=== PATIENT | female | born 1950 | race American Indian/Alaskan Native ===

== ENCOUNTER 2021-04-07 09:57 | Day surgery (SDC) | payer OTHER ==
[~2021-04-07 09:57] MED LIST: Acetaminophen 325 MG Tab PO PRN; Acetaminophen/Codeine 300-30 MG Tab PO PRN; Cataract Ophth Solution EYELF ONE; Moxifloxacin 0.5% Ophth Soln 3 ML Bottle EYELF ONE; Ondansetron 4 MG/2 ML SDV IVPUSH PRN; Phenylephrine 10% Ophth Soln 5 ML Bot EYELF ONE; Povidone-Iodine 5% Sterile Ophth Soln 30 ML Bottle EYELF ONE; Proparacaine 0.5% Ophth Soln 15 ML Bottle EYELF ONE; Sodium Chloride 0.9% 10 ML Syringe FLUSH PRN; Timolol Maleate 0.5% Ophth Soln 5 ML Bottle EYELF ONE; Tropicamide 1% Ophth Soln 15 ML Bottle EYELF ONE
[2021-04-07] MEDS ORDERED: Sodium Chloride 0.9% 10 ML Syringe IV ONE (09:58)
[2021-04-07] MEDS ORDERED: Dexamethasone 4 MG/ML SDV IV ONE (09:58)
[2021-04-07] MEDS ORDERED: Midazolam 1 MG/ML 2 ML SDV IV ONE (09:58)
[2021-04-07] MEDS ORDERED: Tetracaine HCl/PF 0.5% 4 ML Bottle EYELF ONE (11:08)
[2021-04-07] MEDS ORDERED: Apraclonidine 0.5% Ophth Soln 5 ML Bot EYELF ONE (11:08)
[2021-04-07] MEDS ORDERED: Povidone-Iodine 5% Sterile Ophth Soln 30 ML Bottle EYELF ONE (11:08)
[2021-04-07] MEDS ORDERED: Diclofenac Sodium 0.1% Ophth Soln 5 ML Bottle EYELF ONE (11:08)
[2021-04-07] MEDS ORDERED: Dexamethasone/Neomycin/Polymyxin B Ophth Oint 3.5 GM Tube EYELF ONE (11:09)
[2021-04-07] MEDS ORDERED: Chondroitin Sulfate/Hyaluronate Sodium Ophth Inj 0.75 ML Syringe EYELF ONE (11:09)
[2021-04-07] MEDS ORDERED: Balanced Salt Solution Ophth Irrig 500 ML Bottle IOCULAR ONE (11:09)
[2021-04-07] MEDS ORDERED: Vancomycin 500 MG SDV ONE (11:09)
[2021-04-07] MEDS ORDERED: Lidocaine 1% 30 ML SDV ONE (11:10)
--- NOTE | 2021-04-09 08:21 | OR ---
DATE: 04/07/2021 PREOPERATIVE DIAGNOSIS: Visually significant mixed cataract, left eye. POSTOPERATIVE DIAGNOSIS: Visually significant mixed cataract, left eye. PROCEDURE: Extracapsular cataract extraction with intraocular lens implant, left eye. ANESTHESIA: Topical/local MAC. COMPLICATIONS: None. INDICATION: The patient was seen in the clinic with complaints of blurred vision. 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 Visual needs were not met with an updated refraction. The patient was symptomatic with multiple complaints impacting activities of daily living. Explained options, offered cataract surgery for the left eye. Explained risks, including, but not limited to, infection, retinal detachment, loss of vision, need for additional surgery, and risks associated with anesthesia, amongst others. We discussed implant options. The patient requested a monofocal implant. OPERATIVE DESCRIPTION: After informed consent was obtained and the risks, benefits, and alternatives were explained, the patient was brought to the operative suite and topical anesthesia was administered. The patient was then prepped and draped in the sterile fashion and attention was placed on the left eye. A sterile lid speculum was placed into the left eye to allow operative exposure. A full-thickness paracentesis was made in the temporal portion of the operative eye. Preservative-free lidocaine 0.1 mL was injected into the anterior chamber followed by viscoelastic. A full-thickness corneal incision was then made into the anterior chamber. A bent needle cystotome was used to create a small vanessa in the anterior capsule. The capsulorrhexis forceps was then used to create a 360-degree curvilinear capsulorrhexis. The nucleus was then removed using a phacoemulsification handpiece and the remaining cortical material was then removed with irrigation and aspiration handpiece. Following removal of the cortical material, the capsular bag was then inspected and noted to be free of any holes or tears. Viscoelastic was then injected into the capsular bag and the intraocular lens was inserted into the capsular bag. The viscoelastic material was then removed from both the anterior and posterior chambers and from behind the IOL. The lens and capsular bag were then reinspected. The IOL was well centered and the capsular bag intact. The wound and paracentesis sites were inspected and hydrated with balanced saline solution. Both were found to be self- sealing. The intraocular pressure was assessed digitally and found to be within normal range. A good red reflex was noted at the completion of the procedure. No complications occurred during the operation. At the completion of the procedure, Maxitrol, Voltaren, and Iopidine drops were placed into the operative eye. A sterile eye shield was placed over the operative eye and the patient was transported to the postoperative recovery area having tolerated the procedure well. Postoperative instructions were given along with a postoperative appointment. The patient was advised to call with any questions or concerns. [facility] /[id number]
== END 2021-04-07 12:00 | disposition home or self-care (01) ==
LOC: DL.SDS 09:57
PROVIDERS: ATTEND Ophthalmology
DX: E11.36 Type 2 diabetes mellitus with diabetic cataract (principal); H26.8 Other specified cataract; E78.5 Hyperlipidemia, unspecified; D50.9 Iron deficiency anemia, unspecified; F17.210 Nicotine dependence, cigarettes, uncomplicated; I65.21 Occlusion and stenosis of right carotid artery; J44.9 Chronic obstructive pulmonary disease, unspecified
CPT/HCPCS: 66984; 82947; A9270; J1100; J2250; J3370; V2632

== ENCOUNTER 2021-05-26 09:16 | Day surgery (SDC) | payer OTHER ==
[~2021-05-26 09:16] MED LIST changes: -Cataract Ophth Solution EYELF ONE; -Moxifloxacin 0.5% Ophth Soln 3 ML Bottle EYELF ONE; -Phenylephrine 10% Ophth Soln 5 ML Bot EYELF ONE; -Povidone-Iodine 5% Sterile Ophth Soln 30 ML Bottle EYELF ONE; -Proparacaine 0.5% Ophth Soln 15 ML Bottle EYELF ONE; -Sodium Chloride 0.9% 10 ML Syringe FLUSH PRN; -Timolol Maleate 0.5% Ophth Soln 5 ML Bottle EYELF ONE; -Tropicamide 1% Ophth Soln 15 ML Bottle EYELF ONE
[2021-05-26] MEDS ORDERED: Sodium Chloride 0.9% 10 ML Syringe IV ONE (09:17)
[2021-05-26] MEDS ORDERED: Midazolam 1 MG/ML 2 ML SDV IV ONE (09:17)
[2021-05-26] MEDS ORDERED: Dexamethasone 4 MG/ML SDV IV ONE (09:17)
[2021-05-26] MEDS: Sodium Chloride 0.9% 10 ML Syringe FLUSH PRN (09:38)
[2021-05-26] MEDS: Proparacaine 0.5% Ophth Soln 15 ML Bottle EYERT ONE (09:41)
[2021-05-26] MEDS: Povidone-Iodine 5% Sterile Ophth Soln 30 ML Bottle EYERT ONE ×2 (09:41→10:25)
[2021-05-26] MEDS: Moxifloxacin 0.5% Ophth Soln 3 ML Bottle EYERT ONE (09:42)
[2021-05-26] MEDS: Tropicamide 1% Ophth Soln 15 ML Bottle EYERT ONE (09:43)
[2021-05-26] MEDS: Phenylephrine 10% Ophth Soln 5 ML Bot EYERT ONE (09:43)
[2021-05-26] MEDS: Timolol Maleate 0.5% Ophth Soln 5 ML Bottle EYERT ONE (09:44)
[2021-05-26] MEDS: Cataract Ophth Solution EYERT ONE (09:45)
[2021-05-26] MEDS: Tetracaine HCl/PF 0.5% 4 ML Bottle EYERT ONE (10:24)
[2021-05-26] MEDS: Apraclonidine 0.5% Ophth Soln 5 ML Bot EYERT ONE (10:26)
[2021-05-26] MEDS: Diclofenac Sodium 0.1% Ophth Soln 5 ML Bottle EYERT ONE (10:26)
[2021-05-26] MEDS: Dexamethasone/Neomycin/Polymyxin B Ophth Oint 3.5 GM Tube EYERT ONE (10:26)
[2021-05-26] MEDS: Chondroitin Sulfate/Hyaluronate Sodium Ophth Inj 0.75 ML Syringe EYERT ONE (10:27)
[2021-05-26] MEDS: Balanced Salt Solution Ophth Irrig 500 ML Bottle IOCULAR ONE (10:27)
[2021-05-26] MEDS: Lidocaine 1% 30 ML SDV ONE (10:27)
[2021-05-26] MEDS: Vancomycin 500 MG SDV EYERT ONE (10:27)
[2021-05-26] MEDS: Dexamethasone 4 MG/ML SDV IOCULAR ONE (10:30)
--- NOTE | 2021-05-26 12:57 | OR ---
DATE: 05/26/2021 PREOPERATIVE DIAGNOSIS: Visually significant mixed cataract, right eye. POSTOPERATIVE DIAGNOSIS: Visually significant mixed cataract, right eye. PROCEDURE: Extracapsular cataract extraction with intraocular lens implant, right eye. ANESTHESIA: Topical/local MAC. COMPLICATIONS: None. INDICATION: Ms. Klein was seen in the clinic. She is unhappy with her vision. She has noticed a progressive change. She has difficulty reading, seeing television, difficulty seeing newspapers and pill bottles, difficulty driving, difficulty seeing curbs. Explained options. Offered cataract surgery. I explained risks, including, but not limited to, infection; retinal detachment; loss of vision; need for additional surgery; and risks associated with anesthesia. We discussed implant options. She has requested a monofocal implant. She is comfortable wearing glasses following surgery if necessary. She voiced understanding with respect to risks and limitations and wished to proceed. OPERATIVE DESCRIPTION: After informed consent was obtained and the risks, benefits, and alternatives were explained, the patient was brought to the operative suite and topical anesthesia was administered. The patient was then prepped and draped in the sterile fashion and attention was placed on the right eye. A sterile lid speculum was placed into the right eye to allow operative exposure. A full-thickness paracentesis was made in the temporal portion of the operative eye. Preservative-free lidocaine 0.1 mL was injected into the anterior chamber followed by viscoelastic. A full-thickness corneal incision was then made into the anterior chamber. A bent needle cystotome was used to create a small vanessa in the anterior capsule. The capsulorrhexis forceps was then used to create a 360-degree curvilinear capsulorrhexis. The nucleus was then removed using a phacoemulsification handpiece and the remaining cortical material was then removed with irrigation and aspiration handpiece. Following removal of the cortical material, the capsular bag was then inspected and noted to be free of any holes or tears. Viscoelastic was then injected into the capsular bag and the intraocular lens was inserted into the capsular bag. The viscoelastic material was then removed from both the anterior and posterior chambers and from behind the IOL. The lens and capsular bag were then reinspected. The IOL was well centered and the capsular bag intact. The wound and paracentesis sites were inspected and hydrated with balanced saline solution. Both were found to be self- sealing. The intraocular pressure was assessed digitally and found to be within normal range. A good red reflex was noted at the completion of the procedure. No complications occurred during the operation. At the completion of the procedure, Maxitrol, Voltaren, and Iopidine drops were placed into the operative eye. A sterile eye shield was placed over the operative eye and the patient was transported to the postoperative recovery area having tolerated the procedure well. Postoperative instructions were given along with a postoperative appointment. The patient was advised to call with any questions or concerns. [facility] /[id number]
== END 2021-05-26 11:37 | disposition home or self-care (01) ==
LOC: DL.SDS 09:16
PROVIDERS: ATTEND Ophthalmology
DX: E11.36 Type 2 diabetes mellitus with diabetic cataract (principal); H26.8 Other specified cataract; E78.5 Hyperlipidemia, unspecified; F17.210 Nicotine dependence, cigarettes, uncomplicated; J44.9 Chronic obstructive pulmonary disease, unspecified; I10 Essential (primary) hypertension; D64.9 Anemia, unspecified; Z88.8 Allergy status to other drugs, medicaments and biological substances; Z79.82 Long term (current) use of aspirin; Z79.899 Other long term (current) drug therapy
CPT/HCPCS: 00142; A9270-GY; J1100; J2250; J3370; V2632